=== PATIENT | female | born 2000 | race Caucasian/White ===

== ENCOUNTER 2018-10-26 21:57 | Emergency (ER) | payer OTHER ==
--- NOTE | 2018-10-26 23:21 | RADIOLOGY REPORT (SQ) ---
CLINICAL HISTORY: index finger injury/pain COMPARISON: None. TECHNIQUE: XR HAND 3 OR MORE VIEWS 10/26/2018 10:42 PM CDT FINDINGS: There is no fracture. Joint spaces are preserved. Soft tissues are unremarkable. IMPRESSION: No acute osseous findings.
--- NOTE | 2018-10-27 01:09 | ER Document Report ---
HPI - HPI Time Seen by Provider: 10/27/18 01:03 Pain Level: 2 Notes: Patient is a 18-year-old female who presents emergency department complaining of right distal index finger pain status post injury when she was at work. Patient states that she caught her finger between a singh and the sink. Patient states that she had swelling initially which has since improved. She still able to move her finger without difficulties. She has not noticed any other bruising or deformity. Pain does not radiate. Denies any headache, fever, URI, sore throat, chest pain, palpitations, syncope, cough, shortness of breath, wheeze, dyspnea, abdominal pain, nausea/vomiting/diarrhea, urinary retention, dysuria, hematuria, numbness/tingling, muscle paralysis/weakness, or rash. - ROS Systems Reviewed and Negative: Yes All other systems reviewed and negative - REPRODUCTIVE Reproductive: DENIES: : Past Medical History - Social History Smoking Status: Former Smoker Family History: Reviewed & Not Pertinent Vertical Provider Document - CONSTITUTIONAL Agree With Documented VS: Yes Notes: PHYSICAL EXAMINATION: GENERAL: Well-appearing, well-nourished and in no acute distress. LUNGS: Breath sounds clear to auscultation bilaterally and equal. No wheezes rales or rhonchi. HEART: Regular rate and rhythm without murmurs, rubs, gallops. Musculoskeletal: Rt index finger/hand: + very mild swelling distal index finger w. minimal tenderness associated. No ecchymosis or deformity otherwise. FROM to passive/active. Strength 5+/5. N/V intact distal. No other bony tenderness to the hand. Extremities: No cyanosis, clubbing, or edema b/l. Peripheral pulses 2+. Capillary refill less than 3 seconds. NEUROLOGICAL: Normal speech, normal gait. Normal sensory, motor exams PSYCH: Normal mood, normal affect. SKIN: Warm, Dry, normal turgor, no rashes or lesions noted. - INFECTION CONTROL TRAVEL OUTSIDE OF THE [place] IN LAST 30 DAYS: No Course - Re-evaluation Re-evalutation: 10/27/18 01:12 Patient is an afebrile, well-hydrated, 18-year-old female who presents to the ED with right index finger pain. Vitals are acceptable without any significant tachycardia, tachypnea, or hypoxia. PE is otherwise unremarkable for any neurovascular compromise, obvious tendon/ligament rupture, obvious fracture /dislocation, septic joint. X-ray was unremarkable for any acute pathology. Patient is nontoxic-appearing. No other labs or imaging warranted at this time based on H&P. Conservative measures otherwise for symptoms. Recheck with your PCM in 3-5 days. Consider consult orthopedics. Return to the ED with any worsening/concerning symptoms otherwise as reviewed in discharge. Patient is in agreement. - Vital Signs Vital signs: Temp Pulse Resp BP Pulse Ox 98.1 F 81 16 115/86 H 100 10/26/18 22:06 10/26/18 22:06 10/26/18 22:06 10/26/18 22:06 10/26/18 22:06 Discharge - Discharge Clinical Impression: Injury of right index finger Qualifiers: Encounter type: initial encounter Qualified Code(s): S69.91XA - Unspecified injury of right wrist, hand and finger(s), initial encounter Condition: Stable Disposition: HOME, SELF-CARE Additional Instructions: Rest, Ice, Compression, Elevation Tylenol/ibuprofen as needed Light stretches daily Strength exercises as able Moist heat and massage may help F/u with your PCP in 3-5 days for a recheck Consider consult(s) with Orthopedics/physical therapy for ongoing/worsening symptoms Return to the ED with any worsening symptoms and/or development of fever, headache, chest pain, palpitations, syncope, shortness of breath, trouble breathing, abdominal pain, n/v/d, muscle weakness/paralysis, numbness/tingling, swelling, redness, or other worsening symptoms that are concerning to you. Forms: Elevated Blood Pressure Referrals: [facility] [Provider Group] - Follow up as needed
[2018-10-27 01:12] VITALS: BP 116/80
== END 2018-10-27 01:12 | disposition home or self-care (01) ==
LOC: ER 21:57
DX: S69.91XA Unspecified injury of right wrist, hand and finger(s), initial encounter (principal); M79.644 Pain in right finger(s); W23.0XXA Caught, crushed, jammed, or pinched between moving objects, initial encounter; Z87.891 Personal history of nicotine dependence
CPT/HCPCS: 99283

== ENCOUNTER 2019-02-11 18:24 | Emergency (ER) | payer OTHER ==
[2019-02-11] MEDS ORDERED: ONDANSETRON 4 MG TAB.RAPDIS PO ONE (19:23)
--- NOTE | 2019-02-11 19:26 | ER Document Report ---
ED Medical Screen (RME) - General Chief Complaint: Nausea/Vomiting Stated Complaint: NAUSEA Time Seen by Provider: 02/11/19 19:23 TRAVEL OUTSIDE OF THE [place] IN LAST 30 DAYS: No - HPI Notes: 02/11/19 19:24 Patient is a 18-year-old female no significant past medical history who presents complaining of nausea, vomiting, intermittent dizziness that began last evening into today. Patient states that she has vomited about 3 times today. Patient states that her girlfriend is here as well with similar symptoms. Patient states that she did eat food from [employer] that was beyond the "sell by date" and is not sure if that is related. Patient states that she still has an appetite and would like to eat, but does have a nausea. Patient states that she will have occasional soreness in her epigastrium. Denies OROZCO, fever, neck pain, URI, CP, SOB, dysuria, back pain, or rash. I have treated and performed a rapid initial assessment of this patient. A comprehensive ED assessment and evaluation of the patient, analysis of test results and completion of medical decision making process will be conducted by additional ED providers. PHYSICAL EXAMINATION: GENERAL: Well-appearing, well-nourished and in no acute distress. A&Ox4. Answers questions appropriately. Patient was texting on her cell phone sitting comfortably on the exam table upon entry for evaluation. No noted discomfort to visual exam. LUNGS: Breath sounds clear to auscultation bilaterally and equal. No wheezes rales or rhonchi. HEART: Regular rate and rhythm without murmurs, rubs, gallops. ABDOMEN: Soft, nondistended abdomen. No guarding, no rebound. Normal bowel sounds present. No CVA tenderness bilaterally. + mild epigastric tenderness (cannot elicit thorough abd exam w/o bed, however). - Related Data Allergies/Adverse Reactions: No Known Allergies Allergy (Verified 02/11/19 18:31) Past Medical History Renal/ Medical History: Denies: Hx Peritoneal Dialysis Physical Exam - Vital signs Vitals: Temp Pulse Resp BP Pulse Ox 97.9 F 102 H 16 140/94 H 99 02/11/19 18:32 02/11/19 18:32 02/11/19 18:32 02/11/19 18:32 02/11/19 18:32 Course - Vital Signs Vital signs: Temp Pulse Resp BP Pulse Ox 97.9 F 102 H 16 140/94 H 99 02/11/19 18:32 02/11/19 18:32 02/11/19 18:32 02/11/19 18:32 02/11/19 18:32
[2019-02-11 19:46] LABS: ABSOLUTE BASOPHILS # (AUTO) 0.1 10^3/uL (0.0-0.2); ABSOLUTE LYMPHOCYTES (AUTO) 2.2 10^3/uL (0.5-4.7); ABSOLUTE MONOCYTES (AUTO) 0.9 10^3/uL (0.1-1.4); ABSOLUTE NEUT (AUTO) 10.4 10^3/uL (1.7-8.2); BASOPHILS % (AUTO) 0.4 % (0-2); EOSINOPHILS % (AUTO) 0.1 % (0-6); HEMATOCRIT 39.6 % (36.0-47.0); HEMOGLOBIN 13.6 g/dL (12.0-15.5); LYMPHOCYTES % (AUTO) 16.4 % (13-45); MEAN CORPUSCULAR HEMOGLOBIN 30.4 pg (27.0-33.4); MEAN CORPUSCULAR HGB CONC 34.5 g/dL (32.0-36.0); MEAN CORPUSCULAR VOLUME 88 fl (80-97); MONOCYTES % (AUTO) 6.4 % (3-13); PLATELET COUNT 364 10^3/uL (150-450); RED BLOOD COUNT 4.49 10^6/uL (3.72-5.28); RED CELL DISTRIBUTION WIDTH 12.5 % (11.5-14.0); SEGMENTED NEUTROPHILS % (AUTO) 76.7 % (42-78); TOTAL CELLS COUNTED % (AUTO) 100 %; WHITE BLOOD COUNT 13.5 10^3/uL (4.0-10.5)
[2019-02-11 19:56] LABS: APPEARANCE,URINE CLEAR; BILIRUBIN,URINE NEGATIVE (NEGATIVE); COLOR,URINE YELLOW; GLUCOSE, URINE NEGATIVE (NEGATIVE); KETONES,URINE NEGATIVE (NEGATIVE); LEUKOCYTE ESTERASE,URINE NEGATIVE (NEGATIVE); NITRITE,URINE NEGATIVE (NEGATIVE); PROTEIN,URINE 30 mg/dL (NEGATIVE); URINE SPECIFIC GRAVITY 1.027
[2019-02-11 20:12] LABS: ALANINE AMINOTRANSFERASE 23 U/L (9-52); ALBUMIN 4.6 g/dL (3.5-5.0); ALKALINE PHOSPHATASE 78 U/L (38-126); ANION GAP 10 (5-19); ASPARTATE AMINO TRANSFERASE 18 U/L (14-36); BILIRUBIN,DIRECT 0.2 mg/dL (0.0-0.4); BILIRUBIN,TOTAL 0.4 mg/dL (0.2-1.3); BLOOD UREA NITROGEN 18 mg/dL (7-20); CALCIUM 9.8 mg/dL (8.4-10.2); CARBON DIOXIDE 30 mmol/L (22-30); CHLORIDE 100 mmol/L (98-107); GLUCOSE 91 mg/dL (75-110); POTASSIUM 4.1 mmol/L (3.6-5.0); SODIUM 140.1 mmol/L (137-145); TOTAL PROTEIN 7.7 g/dL (6.3-8.2)
[2019-02-11] MEDS ORDERED: ONDANSETRON ODT 4 MG TAB (6 TAB/ER DISP) PO PRN (21:17)
--- NOTE | 2019-02-11 21:17 | ER Document Report ---
ED GI/ - General Chief Complaint: Nausea/Vomiting Stated Complaint: NAUSEA Time Seen by Provider: 02/11/19 19:23 Mode of Arrival: Ambulatory Information source: Patient Notes: Patient is a 18-year-old female presented to the emergency department with chief complaint of vomiting. She reports multiple roommates with similar symptoms, she states that she thinks that food poisoning. She denies any abdominal pain, diarrhea or fevers. She denies any dysuria. TRAVEL OUTSIDE OF THE [place] IN LAST 30 DAYS: No - Related Data Allergies/Adverse Reactions: morphine Adverse Reaction (Verified 02/11/19 20:07) Past Medical History - General Information source: Patient - Social History Smoking Status: Never Smoker Frequency of alcohol use: None Drug Abuse: None Family History: Reviewed & Not Pertinent Patient has suicidal ideation: No Patient has homicidal ideation: No Renal/ Medical History: Denies: Hx Peritoneal Dialysis Psychiatric Medical History: Reports: Hx Depression Past Surgical History: Reports: Hx Tonsillectomy Review of Systems - Review of Systems Constitutional: No symptoms reported EENT: No symptoms reported Cardiovascular: No symptoms reported Respiratory: No symptoms reported Gastrointestinal: Nausea, Vomiting Genitourinary: No symptoms reported Female Genitourinary: No symptoms reported Musculoskeletal: No symptoms reported Skin: No symptoms reported Hematologic/Lymphatic: No symptoms reported Neurological/Psychological: No symptoms reported Physical Exam - Vital signs Vitals: Temp Pulse Resp BP Pulse Ox 97.9 F 102 H 16 140/94 H 99 02/11/19 18:32 02/11/19 18:32 02/11/19 18:32 02/11/19 18:32 02/11/19 18:32 - Notes Notes: PHYSICAL EXAMINATION: GENERAL: Well-appearing, well-nourished and in no acute distress. HEAD: Atraumatic, normocephalic. EYES: Pupils equal round and reactive to light, extraocular movements intact, conjunctiva are normal. ENT: Nares patent, oropharynx clear without exudates. Moist mucous membranes. NECK: Normal range of motion, supple without lymphadenopathy LUNGS: Breath sounds clear to auscultation bilaterally and equal. No wheezes rales or rhonchi. HEART: Regular rate and rhythm without murmurs ABDOMEN: Soft, nontender, nondistended abdomen. No guarding, no rebound. No masses appreciated. Female : deferred Musculoskeletal: Normal range of motion, no pitting or edema. No cyanosis. NEUROLOGICAL: Cranial nerves grossly intact. Normal speech, normal gait. Normal sensory, motor exams PSYCH: Normal mood, normal affect. SKIN: Warm, Dry, normal turgor, no rashes or lesions noted. Course - Re-evaluation Re-evalutation: Patient appears well, nontoxic, vital signs are within normal limits. At the time of my initial evaluation she has not had any episodes of vomiting and her labs are as recorded and unremarkable. Likely viral gastroenteritis. ED return precautions were discussed with patient to include worsening abdominal pain, development of fever persistent vomiting patient verbalizes understanding and ag reement with plan. The patient's emergency department workup and current diagnosis were explained t o the patient and or family. Follow-up instructions were provided. Medications if prescribed were discussed. Instructions for when to return to the emergency department including specific worrisome symptoms were discussed with the patient and/or family. - Vital Signs Vital signs: Temp Pulse Resp BP Pulse Ox 98.1 F 82 20 138/86 H 98 02/11/19 21:28 02/11/19 21:28 02/11/19 21:28 02/11/19 21:28 02/11/19 21:28 - Laboratory Result Diagrams: 02/11/19 19:40 02/11/19 19:40 Laboratory results interpreted by me: 02/11/19 02/11/19 19:35 19:40 WBC 13.5 H Absolute Neutrophils 10.4 H Urine Protein 30 H Urine Urobilinogen 2.0 H Discharge - Discharge Clinical Impression: Gastroenteritis Nausea and vomiting Qualifiers: Vomiting type: unspecified Vomiting Intractability: non-intractable Qualified Code(s): R11.2 - Nausea with vomiting, unspecified Condition: Stable Disposition: HOME, SELF-CARE Additional Instructions: You have been seen in the Emergency Department (ED) today for nausea and vomiting. Your work up today has not shown a clear cause for your symptoms. You have been prescribed Zofran; please use as prescribed as needed for your nausea. Follow up with your doctor as soon as possible regarding today's emergent visit and your symptoms of nausea. Return to the Emergency Department (ED) if you develop abdominal pain, bloody vomiting, bloody diarrhea, if you are unable to tolerate fluids due to vomiting, or if you develop other symptoms that concern you. Prescriptions: Ondansetron [Zofran Odt 4 mg Tablet] 1 - 2 tab PO Q4H PRN #15 tab.rapdis PRN Reason: For Nausea/Vomiting Forms: Return to Work
[2019-02-11 21:29] VITALS: BP 138/86
== END 2019-02-11 21:29 | disposition home or self-care (01) ==
LOC: ER 18:24
DX: K52.9 Noninfective gastroenteritis and colitis, unspecified (principal); R11.2 Nausea with vomiting, unspecified
CPT/HCPCS: 99283; 36415; 83690; 85025; 81025; 80053; 81001; S0119

== ENCOUNTER 2019-05-01 17:05 | Emergency (ER) | payer OTHER ==
[2019-05-01 18:05] LABS: ABSOLUTE EOSINOPHILS # (AUTO) 0.1 10^3/uL (0.0-0.6); ABSOLUTE LYMPHOCYTES (AUTO) 2.7 10^3/uL (0.5-4.7); ABSOLUTE MONOCYTES (AUTO) 0.8 10^3/uL (0.1-1.4); ABSOLUTE NEUT (AUTO) 5.8 10^3/uL (1.7-8.2); BASOPHILS % (AUTO) 0.4 % (0-2); EOSINOPHILS % (AUTO) 0.9 % (0-6); HEMATOCRIT 35.9 % (36.0-47.0); HEMOGLOBIN 12.3 g/dL (12.0-15.5); LYMPHOCYTES % (AUTO) 28.3 % (13-45); MEAN CORPUSCULAR HEMOGLOBIN 30.5 pg (27.0-33.4); MEAN CORPUSCULAR HGB CONC 34.3 g/dL (32.0-36.0); MEAN CORPUSCULAR VOLUME 89 fl (80-97); MONOCYTES % (AUTO) 8.5 % (3-13); PLATELET COUNT 291 10^3/uL (150-450); RED BLOOD COUNT 4.05 10^6/uL (3.72-5.28); RED CELL DISTRIBUTION WIDTH 12.6 % (11.5-14.0); SEGMENTED NEUTROPHILS % (AUTO) 61.9 % (42-78); TOTAL CELLS COUNTED % (AUTO) 100 %; WHITE BLOOD COUNT 9.4 10^3/uL (4.0-10.5)
[2019-05-01 18:09] LABS: APPEARANCE,URINE CLEAR; BILIRUBIN,URINE NEGATIVE (NEGATIVE); COLOR,URINE STRAW; GLUCOSE, URINE NEGATIVE (NEGATIVE); KETONES,URINE NEGATIVE (NEGATIVE); LEUKOCYTE ESTERASE,URINE NEGATIVE (NEGATIVE); NITRITE,URINE NEGATIVE (NEGATIVE); PROTEIN,URINE NEGATIVE (NEGATIVE); URINE SPECIFIC GRAVITY 1.009; UROBILINOGEN,URINE NEGATIVE mg/dL (<2.0)
[2019-05-01 19:13] LABS: ALBUMIN 3.6 g/dL (3.5-5.0); ALKALINE PHOSPHATASE 67 U/L (38-126); ANION GAP 8 (5-19); ASPARTATE AMINO TRANSFERASE 15 U/L (14-36); BILIRUBIN,DIRECT 0.1 mg/dL (0.0-0.4); BILIRUBIN,TOTAL 0.3 mg/dL (0.2-1.3); BLOOD UREA NITROGEN 12 mg/dL (7-20); CALCIUM 9.4 mg/dL (8.4-10.2); CARBON DIOXIDE 24 mmol/L (22-30); CHLORIDE 105 mmol/L (98-107); GLUCOSE 83 mg/dL (75-110); POTASSIUM 3.9 mmol/L (3.6-5.0); TOTAL PROTEIN 6.6 g/dL (6.3-8.2)
--- NOTE | 2019-05-01 19:28 | RADIOLOGY REPORT (SQ) ---
EXAM DESCRIPTION: U/S NON OB PEL TV W/DOPPLER COMPLETED DATE/TIME: 05/01/2019 7:16 pm REASON FOR STUDY: RLQ twisting pain, h/o ovarian cyst, r/o torsion LMP 04/03/2019 COMPARISON: None. TECHNIQUE: Dynamic and static grayscale images acquired of the pelvis via transvaginal approach and recorded on PACS. Additional selected color Doppler and spectral images recorded. LIMITATIONS: None. FINDINGS: UTERUS: Contour normal. No mass. ENDOMETRIAL STRIPE: No focal or generalized thickening. No masses. CERVIX: 2.2 cm. No nabothian cysts. RIGHT OVARY AND DOPPLER: Normal size. No worrisome masses. Normal arterial vascular flow without evid ence for torsion. LEFT OVARY AND DOPPLER: Normal size. No worrisome masses. Normal arterial vascular flow without evide nce for torsion. FREE FLUID: None noted. OTHER: No other significant finding. MEASUREMENTS: UTERUS: 7.5 x 4.6 x 4.1 cm. ENDOMETRIAL STRIPE: 10 mm. RIGHT OVARY: 2.6 x 1.8 x 1.4 cm. LEFT OVARY: 2.3 x 1.8 x 1.8 cm. IMPRESSION: NORMAL TRANSVAGINAL PELVIC ULTRASOUND. TECHNICAL DOCUMENTATION: JOB ID: [id number] [employer]- All Rights Reserved Rev-12/16 Reading location - IP/workstation name: [email or web address]
[2019-05-01] MEDS ORDERED: FENTANYL CITRATE INJ/PF 100 MCG/2 ML AMPUL IV ONE (20:30)
[2019-05-01] MEDS ORDERED: NORMAL SALINE 1000 ML 1,000 ML IV ONE (20:31)
--- NOTE | 2019-05-01 23:02 | RADIOLOGY REPORT (SQ) ---
EXAM DESCRIPTION: CT ABDOMEN PELVIS WITH IV CONTRAST COMPLETED DATE/TME: 05/01/2019 20:31 CLINICAL HISTORY: 19 years, Female, RLQ abd pain. This exam was performed according to our departmental dose-optimization program which includes automated exposure control, adjustment of the mA and/or kVp according to patient size and/or use of iterative reconstruction technique where applicable. FINDINGS: Visualized lung bases are within normal limits. Liver, spleen, pancreas, gallbladder, adrenal glands and kidneys are within normal limits. No hydronephrosis. No biliary dilatation. No dilated loops of bowel to suggest obstruction. Mild amount of stool in the colon. The appendix is normal. No free fluid or free air. The bladder is unremarkable. Gynecologic organs are unremarkable. No abdominal or pelvic lymphadenopathy. Abdominal aorta is within normal limits. IMPRESSION: No evidence for acute appendicitis. No acute pathology.
[2019-05-01 23:14] VITALS: BP 105/66
[2019-05-01] MEDS ORDERED: METHOCARBAMOL 750 MG TABLET PO ONE (23:39)
--- NOTE | 2019-05-01 23:45 | ER Document Report ---
ED General - General Chief Complaint: Abdominal Pain Stated Complaint: VAGINAL PAIN Time Seen by Provider: 05/01/19 17:11 Notes: 19-year-old female presents emergency department complaining of sharp stabbing right lower quadrant pain that she describes as twisting type of pain that radiates across her lower abdomen to the left hand side. Patient states that onset suddenly this morning was associate with nausea and vomiting x1, denies any diarrhea but states she did have 3 bowel movements today. Patient states that she was diagnosed with an ovarian cyst in middle school and since then has been getting pain in the same area every month or 2 to 3 days before her period starts however she states that it usually resolves after 15 minutes and today has been constant since this morning and is significantly worse. Denies any fevers. Denies any dysuria, flank pain or vaginal discharge. TRAVEL OUTSIDE OF THE [place] IN LAST 30 DAYS: No - Related Data Allergies/Adverse Reactions: morphine Adverse Reaction (Verified 02/11/19 20:07) Past Medical History - General Information source: POA - Power of [employer] - Social History Smoking Status: Former Smoker Frequency of alcohol use: Rare Drug Abuse: None Family History: Reviewed & Not Pertinent Patient has suicidal ideation: No Patient has homicidal ideation: No Renal/ Medical History: Denies: Hx Peritoneal Dialysis Psychiatric Medical History: Reports: Hx Depression Past Surgical History: Reports: Hx Tonsillectomy Review of Systems - Review of Systems Constitutional: No symptoms reported EENT: No symptoms reported Gastrointestinal: See HPI Genitourinary: No symptoms reported Female Genitourinary: See HPI -: Yes All other systems reviewed and negative Physical Exam - Vital signs Vitals: Temp Pulse Resp BP Pulse Ox 99.1 F 80 16 124/84 98 05/01/19 17:28 05/01/19 17:28 05/01/19 17:28 05/01/19 17:28 05/01/19 17:28 Interpretation: Normal - Notes Notes: GENERAL: Alert, interacts well. Appears mildly uncomfortable. HEAD: Normocephalic, atraumatic EYES: Pupils equal, round and reactive to light, extraocular movements intact. ENT: Oral mucosa moist, tongue midline. NECK: Full range of motion, supple, trachea midline. LUNGS: Clear to auscultation bilaterally, no wheezes, rales or rhonchi, no respiratory distress. HEART: Regular rate and rhythm, no murmurs, gallops, rubs. ABDOMEN: Soft, diffuse lower abdominal tenderness to palpation worst in the right lower quadrant, small amount of guarding but no rigidity or rebounding, nondistended, bowel sounds present in all 4 quadrants. EXTREMITIES: Moves all 4 extremities spontaneously, no edema, radial and dorsalis pedis pulses 2/4 bilaterally. No cyanosis. NEUROLOGICAL: Alert and oriented x3, normal speech. PSYCH: Normal mood, normal affect. SKIN: Warm, Dry, normal turgor, no rashes or lesions noted. Course - Re-evaluation Re-evalutation: 05/01/19 23:42 CBC unremarkable, CMP unremarkable, test is negative, urinalysis unremarkable, transvaginal ultrasound performed looking for ovarian torsion, no evidence of torsion or cyst, patient does have persistent reproducible lower abdominal pain, CT scan of the abdomen pelvis was ordered and reveals no acute process, no evidence of appendicitis. At this time discussed with patient that I do not know the exact etiology of her pain and discussed that there is a broad differential including endometriosis. Suggested that she follow-up with [facility] as an outpatient to discuss the pain that happens every month before her period. Also suggested that she use [id number] medication such as Advil and Tylenol. Also prescribed muscle relaxer in the form of Robaxin as if this is menstrual cramping then a muscle relaxer may help. Patient is agreeable to this plan. I did personally review the CT scan and despite the fact that the patient says she could not possibly be constipated because she put 3 times today there is a very large stool burden on her CAT scan, suggest the patient try MiraLAX anyway. - Vital Signs Vital signs: Temp Pulse Resp BP Pulse Ox 97.9 F 70 16 105/66 99 05/01/19 23:13 05/01/19 23:13 05/01/19 23:13 05/01/19 23:13 05/01/19 23:13 - Laboratory Result Diagrams: 05/01/19 17:43 05/01/19 17:43 Laboratory results interpreted by me: 05/01/19 17:43 Hct 35.9 L Discharge - Discharge Clinical Impression: Lower abdominal pain Condition: Stable Disposition: HOME, SELF-CARE Additional Instructions: I do not know exactly what is causing her lower abdominal pain. Today we saw no evidence of cyst and no evidence of abdominal abdominal infection. I have prescribed you a muscle relaxer to treat some of this pain in case it is coming from uterine cramping before your period. Please take Robaxin 1 to 2 tablets every 8 hours as needed for pain. Please use ibuprofen (Motrin or Advil) 600-800 mg every 8 hours as needed for pain or fever. You may also use acetaminophen (Tylenol) 1000 mg every 4-6 hours as needed for pain or fever. Please be aware that many medications contain acetaminophen, do not exceed a total of 1000 mg of acetaminophen every 6 hours. Return to the emergency department for fever, worsening pain or any new or concerning symptoms. I know we discussed that you have already had 3 bowel movements today however looking at your CAT scan you do have a very large amount of stool. Some of this pain may be coming from the large amount of stool that is in your abdomen that I can see on the CAT scan. I suggest that she try taking 1 scoop of MiraLAX once a day for the next week to see if this relieves any of your pain. Prescriptions: Methocarbamol [Robaxin 750 mg Tablet] 1 - 2 mg PO Q8HP PRN #40 tablet PRN Reason: Referrals: [facility] [Provider Group] - Follow up as needed
== END 2019-05-01 23:51 | disposition home or self-care (01) ==
LOC: ER 17:05
DX: R10.31 Right lower quadrant pain (principal); R10.813 Right lower quadrant abdominal tenderness; R11.2 Nausea with vomiting, unspecified; Z87.42 Personal history of other diseases of the female genital tract; Z87.891 Personal history of nicotine dependence
CPT/HCPCS: 36415; 85025; 81025; 80053; 81001; 76830; 93976; 74177; J3010; J3490; J7030

== ENCOUNTER 2019-08-11 00:07 | Emergency (ER) | payer OTHER ==
[2019-08-11 00:13] VITALS: BP 151/81
[2019-08-11 01:21] LABS: ABSOLUTE EOSINOPHILS # (AUTO) 0.1 10^3/uL (0.0-0.6); ABSOLUTE LYMPHOCYTES (AUTO) 2.6 10^3/uL (0.5-4.7); ABSOLUTE MONOCYTES (AUTO) 0.6 10^3/uL (0.1-1.4); ABSOLUTE NEUT (AUTO) 4.1 10^3/uL (1.7-8.2); BASOPHILS % (AUTO) 0.2 % (0-2); EOSINOPHILS % (AUTO) 1.1 % (0-6); HEMATOCRIT 35.6 % (36.0-47.0); HEMOGLOBIN 12.5 g/dL (12.0-15.5); LYMPHOCYTES % (AUTO) 35.1 % (13-45); MEAN CORPUSCULAR HEMOGLOBIN 30.8 pg (27.0-33.4); MEAN CORPUSCULAR HGB CONC 35.1 g/dL (32.0-36.0); MEAN CORPUSCULAR VOLUME 88 fl (80-97); MONOCYTES % (AUTO) 8.4 % (3-13); PLATELET COUNT 294 10^3/uL (150-450); RED BLOOD COUNT 4.06 10^6/uL (3.72-5.28); RED CELL DISTRIBUTION WIDTH 12.7 % (11.5-14.0); SEGMENTED NEUTROPHILS % (AUTO) 55.2 % (42-78); TOTAL CELLS COUNTED % (AUTO) 100 %; WHITE BLOOD COUNT 7.5 10^3/uL (4.0-10.5)
[2019-08-11 01:37] LABS: ALBUMIN 4.3 g/dL (3.5-5.0); ALKALINE PHOSPHATASE 73 U/L (38-126); ANION GAP 9 (5-19); ASPARTATE AMINO TRANSFERASE 16 U/L (14-36); BILIRUBIN,DIRECT 0.3 mg/dL (0.0-0.4); BILIRUBIN,TOTAL 0.3 mg/dL (0.2-1.3); BLOOD UREA NITROGEN 16 mg/dL (7-20); CALCIUM 9.8 mg/dL (8.4-10.2); CARBON DIOXIDE 26 mmol/L (22-30); CHLORIDE 105 mmol/L (98-107); CREATINE KINASE 46 U/L (30-135); GLUCOSE 89 mg/dL (75-110); POTASSIUM 3.9 mmol/L (3.6-5.0); TOTAL PROTEIN 7.1 g/dL (6.3-8.2)
[2019-08-11 01:49] LABS: CREATINE KINASE MB 0.46 ng/mL (<4.55)
[2019-08-11 01:51] LABS: TROPONIN I < 0.012 ng/mL
--- NOTE | 2019-08-11 04:39 | ER Document Report ---
ED General - General Chief Complaint: Arm Pain Stated Complaint: NAUSEA,ARM PAIN,SHORTNESS OF BREATH Time Seen by Provider: 08/11/19 04:16 Notes: 19-year-old female presents emergency department complaining of sudden onset of left-sided chest pain that was just below her left clavicle and just above her left breast associated with shortness of breath and pain on deep breathing. States that after while the pain radiated down to the upper aspect of her left side of her abdomen, upper left jaw and down her left arm. States that her left arm became numb and her jaw was throbbing. Initially patient thought it was due to a binder that she wears on her chest but when she took it off it did not get any better. Patient then spoke with friends and family members who are in the medical field and they told her to come to the emergency department because they thought she might be having a stroke or a heart attack. Patient's pain did improve while sleeping but then it came back when she woke up and her blood was drawn. Denies any history of DVT or PE. Denies any recent travel. Denies history of early cardiac or disease in her family. TRAVEL OUTSIDE OF THE [place] IN LAST 30 DAYS: No - Related Data Allergies/Adverse Reactions: morphine Adverse Reaction (Verified 02/11/19 20:07) Home Medications: Prozac. Aderal. Visteril Past Medical History - General Information source: Patient - Social History Smoking Status: Former Smoker - Currently vapes. Frequency of alcohol use: Rare Drug Abuse: None Family History: CAD - All 4 grandparents with coronary artery disease. Not an early age. Patient has suicidal ideation: No Patient has homicidal ideation: No Renal/ Medical History: Denies: Hx Peritoneal Dialysis Psychiatric Medical History: Reports: Hx Depression Past Surgical History: Reports: Hx Tonsillectomy Review of Systems - Review of Systems Constitutional: No symptoms reported Cardiovascular: See HPI Respiratory: See HPI Gastrointestinal: See HPI Musculoskeletal: See HPI -: Yes All other systems reviewed and negative Physical Exam - Vital signs Vitals: Temp Pulse Resp BP Pulse Ox 97.5 F 72 15 151/81 H 100 08/11/19 00:11 08/11/19 00:11 08/11/19 00:11 08/11/19 00:11 08/11/19 00:11 Interpretation: Hypertensive - Notes Notes: GENERAL: Alert, interacts well. No acute distress. HEAD: Normocephalic, atraumatic EYES: Pupils equal, round and reactive to light, extraocular movements intact. ENT: Oral mucosa moist, tongue midline. NECK: Full range of motion, supple, trachea midline. LUNGS: Clear to auscultation bilaterally, no wheezes, rales or rhonchi, no res piratory distress. HEART: Regular rate and rhythm, no murmurs, gallops, rubs. ABDOMEN: Soft, nontender, nondistended, bowel sounds present in all 4 quadrants. EXTREMITIES: Moves all 4 extremities spontaneously, no edema, radial and dorsalis pedis pulses 2/4 bilaterally. No cyanosis. NEUROLOGICAL: Alert and oriented x3, normal speech, biceps and patellar DTRs 2+ bilaterally. PSYCH: Normal mood, normal affect. SKIN: Warm, Dry, normal turgor, no rashes or lesions noted. Course - Re-evaluation Re-evalutation: 08/11/19 04:38 CBC unremarkable, CMP unremarkable, troponin negative. Chest x-ray is pending to rule out pneumonia or pneumothorax. If this is negative patient will be discharged home. 08/11/19 05:20 Chest x-ray negative. Repeat troponin is negative. Patient will be discharged home. - Vital Signs Vital signs: Temp Pulse Resp BP Pulse Ox 97.5 F 72 15 151/81 H 100 08/11/19 00:11 08/11/19 00:11 08/11/19 00:11 08/11/19 00:11 08/11/19 00:11 - Laboratory Result Diagrams: 08/11/19 01:10 08/11/19 01:10 Laboratory results interpreted by me: 08/11/19 01:10 Hct 35.6 L - EKG Interpretation by Me Additional EKG results interpreted by me: 08/11/19 04:38 EKG shows sinus rhythm, normal axis, normal intervals, no ST segment elevations or depressions, no T wave inversions per my interpretation. Discharge - Discharge Clinical Impression: Atypical chest pain Condition: Stable Disposition: HOME, SELF-CARE Instructions: Chest Pain of Unclear Cause ([facility])
--- NOTE | 2019-08-11 04:59 | RADIOLOGY REPORT (SQ) ---
EXAM DESCRIPTION: XR CHEST TWO VIEWS CLINICAL HISTORY: 19 years, Female, L sided chest pain, SOB COMPARISON: None. FINDINGS: PA and lateral chest radiographs were performed. The lungs are well expanded and clear. The costophrenic sulci are sharp. The cardiac silhouette, hilar regions, trachea, soft tissues and bony structures are unremarkable. IMPRESSION: No acute cardiopulmonary disease.
--- NOTE | 2019-08-12 20:44 | EKG REPORT ---
SEVERITY:- BORDERLINE ECG - SINUS RHYTHM INFERIOR Q WAVES, PROBABLY NORMAL VARIATION : Confirmed by: Betzaida Madrigal 12-Aug-2019 20:43:29
== END 2019-08-11 05:35 | disposition home or self-care (01) ==
LOC: ER 00:07
DX: R07.89 Other chest pain (principal); M25.512 Pain in left shoulder; R06.02 Shortness of breath; R68.84 Jaw pain; M79.602 Pain in left arm; F17.290 Nicotine dependence, other tobacco product, uncomplicated
CPT/HCPCS: 36415; 71046; 80053; 82550; 82553; 84484; 85025; 93005; 93010; 99285